=== PATIENT | male | born 1995 | race African-American/Black ===

== ENCOUNTER 2016-11-25 13:44 | Emergency (ER) | payer OTHER ==
[~2016-11-25] VITALS: Ht 170.2 cm; Wt 83.9 kg
[2016-11-25] MEDS ORDERED: IV NORMAL SALINE 1000ML BAG 1,000 ML IV ONE (14:30)
[2016-11-25] MEDS ORDERED: FENTANYL PF 100 MCG/2 ML VIAL. IV ONE (14:30)
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
[2016-11-25 15:11] VITALS: BP 107/58
[2016-11-25 15:18] LABS: BASO % 0 % (0-3); EOS % 1 % (0-3); HEMATOCRIT 44.6 % (39.0-53.0); HEMOGLOBIN 14.4 g/dL (13.0-17.5); LYMPH # 1.7 x10^3/uL (1.0-4.8); LYMPH % 17 % (24-48); MEAN CORPUSCULAR HEMOGLOBIN 27 pg (25-35); MEAN CORPUSCULAR HGB CONC 32 g/dL (31-37); MEAN CORPUSCULAR VOLUME 85 fL (79-100); MONO % 6 % (0-9); NEUT % 76 % (31-73); PLATELET COUNT 246 x10^3/uL (140-400); RED BLOOD COUNT 5.26 x10^6/uL (4.30-5.70); RED CELL DISTRIBUTION WIDTH 14.3 % (11.5-14.5); WHITE BLOOD COUNT 9.7 x10^3/uL (4.0-11.0)
--- NOTE | 2016-11-25 15:30 | EKG ---
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
[2016-11-25 15:32] LABS: CALCIUM 9.5 mg/dL (8.5-10.1); CREATININE 0.9 mg/dL (0.7-1.3); GFR 104.6
[2016-11-25] MEDS ORDERED: CYCL10TA2 PO (16:10)
[2016-11-25] MEDS ORDERED: IBUP-1060 PO (16:10)
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
== END 2016-11-25 16:28 | disposition home or self-care (01) ==
LOC: ER 13:44
DX: S79.912A Unspecified injury of left hip, initial encounter (principal); S59.911A Unspecified injury of right forearm, initial encounter; S49.92XA Unspecified injury of left shoulder and upper arm, initial encounter; M25.531 Pain in right wrist; V49.40XA Driver injured in collision with unspecified motor vehicles in traffic accident, initial encounter; Y93.I9 Activity, other involving external motion; Y92.410 Unspecified street and highway as the place of occurrence of the external cause; Y99.8 Other external cause status
CPT/HCPCS: 36415; 71010; 73030; 73100; 73502; 80048; 85027; 93005; 96361; 96374; 99285; J3010; J7030